=== PATIENT | male | born 1960 | race Caucasian/White ===

== ENCOUNTER 2024-06-06 06:14 | Day surgery (SDC) | payer MEDICARE, BC ==
[2024-06-05 14:51] VITALS: BMI 25.1
[~2024-06-06 06:14] MED LIST: EPINEPHrine 0.3 MG in Ophthalmic Irrigation Solution 500 ML IRR SCH
[2024-06-06] MEDS ORDERED: PHENYLephrine 2.5% Ophth Soln 15 ml Bottle ONE (06:20)
[2024-06-06] MEDS ORDERED: Cyclopentolate 1% Opth Drop 2 ML BOT ONE (06:20)
[2024-06-06] MEDS ORDERED: PROPOFOL 20 ML ONE (06:32)
[2024-06-06] MEDS ORDERED: fentaNYL 50 mcg/mL 1 mL Vial ONE (06:32)
[2024-06-06] MEDS ORDERED: Midazolam HCl 2 mg/2 ml Vial ONE (06:32)
[2024-06-06] MEDS ORDERED: Lidocaine 1% PF 5 ML VIAL ONE ×2 (06:34→07:22)
[2024-06-06] MEDS ORDERED: CEFAZOLIN 1 GM VIAL ONE (07:22)
[2024-06-06] MEDS ORDERED: Bupivacaine 0.75% 10 ML VIAL ONE (07:22)
[2024-06-06] MEDS ORDERED: Maxitrol 0.1% Opth Oint 3.5 GM TUBE ONE (07:22)
[2024-06-06] MEDS ORDERED: Dexamethasone 4 mg/ml Vial ONE ×2 (07:22→07:27)
[2024-06-06] MEDS ORDERED: Lidocaine 4% PF 5 ML AMP ONE (07:22)
== END 2024-06-06 08:17 | disposition home or self-care (01) ==
LOC: SDC 06:14
PROVIDERS: ATTEND Ophthalmology Retina Specialist
PROC: 08T43ZZ Resection of Right Vitreous, Percutaneous Approach (ICD-10-PCS; principal; 2024-06-06)
PROC: 08NE3ZZ Release Right Retina, Percutaneous Approach (ICD-10-PCS; 2024-06-06)
DX: H43.391 Other vitreous opacities, right eye (principal); Z90.89 Acquired absence of other organs; Z98.890 Other specified postprocedural states
CPT/HCPCS: 67041; J0171; J0690; J1100; J2250; J2704; J3010; J3490